=== PATIENT | female | born 1965 | race American Indian/Alaskan Native ===

== ENCOUNTER 2017-10-09 10:34 | Emergency (ER) | payer OTHER ==
[2017-10-09 10:48] VITALS: BP 144/84
--- NOTE | 2017-10-09 10:50 | Emergency Department Report ---
ED Lower Extremity HPI - General Chief Complaint: Extremity Injury, Lower Stated Complaint: l knee pain sp injury 1 m ago Time Seen by Provider: 10/09/17 10:49 Source: patient Mode of arrival: Ambulatory Limitations: No Limitations - History of Present Illness MD Complaint: knee injury -: Sudden Injury: Knee: Left Type of Injury: blunt Place: work Severity: moderate Worsens With: movement Context: direct blow - Related Data Previous Rx's Medication Instructions Recorded Last Taken Type Naproxen Sodium [Aleve TAB] 220 mg PO Q8H PRN #12 tablet 10/09/17 Unknown Rx Allergies Allergy/AdvReac Type Severity Reaction Status Date / Time No Known Allergies Allergy Unverified 10/09/17 10:47 ED Review of Systems ROS: Stated complaint: LEFT KNEE INJURY Other details as noted in HPI Comment: All other systems reviewed and negative Musculoskeletal: other (l knee pain) ED Past Medical Hx - Past Medical History Previous Medical History?: No - Surgical History Past Surgical History?: No - Social History Smoking Status: Never Smoker Substance Use Type: None - Medications Home Medications: Home Medications Medication Instructions Recorded Confirmed Last Taken Type Naproxen Sodium [Aleve TAB] 220 mg PO Q8H PRN #12 tablet 10/09/17 Unknown Rx ED Physical Exam - General Limitations: No Limitations General appearance: alert - Head Head exam: Present: atraumatic - Eye Eye exam: Present: PERRL - ENT ENT exam: Present: mucous membranes moist - Neck Neck exam: Present: normal inspection - Respiratory Respiratory exam: Present: normal lung sounds bilaterally - Cardiovascular Cardiovascular Exam: Present: regular rate - GI/Abdominal GI/Abdominal exam: Present: soft - Rectal Rectal exam: Present: deferred - Extremities Exam Extremities exam: Present: normal capillary refill - Expanded Lower Extremity Exam Left Upper Leg exam: Present: normal inspection Knee exam: Present: tenderness, swelling, effusion, full knee extension. Absent : abrasion, laceration, ecchymosis, deformity, crepidus, dislocation, erythema, pain w/ pronation/supination, posterior draw sign, pain/laxity with valgus, pain /laxity with varus Lower Leg exam: Present: normal inspection Ankle exam: Present: normal inspection ED Course Vital Signs 10/09/17 10:45 Temperature 98 F Pulse Rate 82 Respiratory 20 Rate Blood Pressure 144/84 O2 Sat by Pulse 100 Oximetry - Reevaluation(s) Reevaluation #1: 10/09/17 11:50 sp injury at work 1 m ago she turned and lost balance hitting her knee since it has hurt and is getting no better ambulatory effusion noted on exam full rom n/v intact. good pulses immobilize and fu with ortho ED Lower Extremity MDM - Radiology Data Radiology results: report reviewed, image reviewed interpreted by me: no fx arthritic eff caudal edenilson - Medical Decision Making see note - Differential Diagnosis ro fx v ligament Critical care attestation.: If time is entered above; I have spent that time in minutes in the direct care of this critically ill patient, excluding procedure time. ED Disposition Clinical Impression: Knee pain, Contusion Disposition: TO HOME OR SELFCARE Is pt being admited?: No Does the pt Need Aspirin: No Condition: Stable Instructions: Knee Pain (ED) Additional Instructions: alternate ice with heat med as ordered for pain follow up with ortho wear knee immob to rest the joint and dec irritation Prescriptions: Naproxen Sodium [Aleve TAB] 220 mg PO Q8H PRN #12 tablet PRN Reason: Pain Referrals: PRIMARY CARE, [Primary Care Provider] - 3-5 Days TEO ZAMORA MD [Staff Physician] - 3-5 Days Time of Disposition: 11:37
--- NOTE | 2017-10-09 11:44 | XRay Report ---
XRAY LEFT KNEE 3 VIEWS: 10/09/17 10:34:00 CLINICAL: Pain after fall. FINDINGS: No fracture or dislocation. Mild osteoarthritis of the medial joint space. There is mild narrowing of the medial joint space with small osteophytes. Patellofemoral joint osteoarthritis. Distention of the suprapatellar bursa suggests a moderate-sized joint effusion. The soft tissues are otherwise normal. 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 Suspect moderate size joint effusion.
== END 2017-10-09 11:54 | disposition home or self-care (01) ==
LOC: ED 10:34
DX: S80.02XA Contusion of left knee, initial encounter (principal); X58.XXXA Exposure to other specified factors, initial encounter; Y93.89 Activity, other specified; Y92.89 Other specified places as the place of occurrence of the external cause; Y99.8 Other external cause status
CPT/HCPCS: 99283